=== PATIENT | female | born 1965 | race Hispanic/Latino ===

== ENCOUNTER 2023-09-20 09:03 | Emergency (ER) | payer BC ==
[~2023-09-20] VITALS: Ht 160 cm; Wt 79.4 kg
[2023-09-20 09:58] LABS: BASOPHILS % 0.4 % (0.0-1.0); EOSINOPHILS % 0.1 % (0.0-6.0); HEMATOCRIT 46.2 % (34.2-44.1); HEMOGLOBIN 14.9 g/dL (12.0-16.0); LYMPHOCYTES # (AUTO) 0.8 (1.0-3.2); MEAN CORPUSCULAR HEMOGLOBIN 31.4 pg (28-32); MEAN CORPUSCULAR HGB CONC 32.3 g/dL (31-35); MEAN CORPUSCULAR VOLUME 97.3 fL (81-99); MONOCYTES # (AUTO) 0.4 (0.2-0.8); MONOCYTES % 4.4 % (4.4-11.3); NEUTROPHILS # (AUTO) 8.3 (2.1-6.9); NEUTROPHILS % 86.9 % (38.7-80.0); PLATELET COUNT 194 x10e3/uL (140-360); RED BLOOD COUNT 4.75 x10e6/uL (3.6-5.1); RED CELL DISTRIBUTION WIDTH 14.7 % (11.7-14.4)
[2023-09-20 10:18] LABS: ALANINE AMINOTRANSFERASE 38 IU/L (0-55); ALBUMIN 3.5 g/dL (3.5-5.0); ALBUMIN/GLOBULIN RATIO 0.9 (0.8-2.0); ALKALINE PHOSPHATASE 190 IU/L (40-150); ANION GAP 27.4 mmol/L (8-16); BILIRUBIN,TOTAL 2.4 mg/dL (0.2-1.2); BLOOD UREA NITROGEN 8 mg/dL (7-26); BUN/CREATININE RATIO 11 (6-25); CARBON DIOXIDE 17 mmol/L (22-29); CHLORIDE 97 mmol/L (98-107); CREATINE KINASE 86 IU/L (29-168); CREATININE, SERUM 0.72 mg/dL (0.57-1.11); EST GLOMERULAR FILTRATION RATE 97 ML/MIN (>=60); GLUCOSE 114 mg/dL (74-118); LIPASE 22 U/L (8-78); SODIUM 138 mmol/L (136-145); TOTAL PROTEIN 7.5 g/dL (6.5-8.1)
[2023-09-20 10:19] LABS: POTASSIUM 3.4 mmol/L (3.5-5.1)
[2023-09-20 10:24] LABS: TROPONIN I < 0.001 ng/mL (0-0.300)
[2023-09-20 10:32] LABS: INR 1.09; PROTHROMBIN TIME 14.3 seconds (11.9-14.5)
[2023-09-20 10:33] LABS: PARTIAL THROMBOPLASTIN TIME 29.5 seconds (23.8-35.5)
[2023-09-20] MEDS: Morphine 4mg INJECTION 4 MG/ML INJ IV STA (10:50)
[2023-09-20] MEDS: SODIUM CHLORIDE 0.9% 1000ML 1,000 ML IV STA ×2 (10:51→12:32)
[2023-09-20] MEDS: ONDANSETRON HCL INJ 2MG/ML 2ML 2 MG/ML VIAL IV STA (10:51)
[2023-09-20 10:53] LABS: ABG HCO3 17 mmol/L (22-26); ABG PCO2 27 mmHg (35-45); ABG PO2 104 mmHg (80-105); ABG TCO2 18
[2023-09-20] MEDS ORDERED: SODIUM CHLORIDE 0.9% 100 ML ONE (10:56)
[2023-09-20] MEDS ORDERED: IOPAMIDOL 370 MG/ML 100 ML INFUS..BTL INJ ONE (10:56)
[2023-09-20 11:48] LABS: ACETAMINOPHEN < 3.0 ug/mL (10-30); ETHANOL < 10.0 mg/dL (0.0-10.0); SALICYLATE < 5.0 mg/dL (0-30)
[2023-09-20 12:04] LABS: CLARITY,URINE SL CLOUDY (CLEAR); COLOR,URINE YELLOW (YELLOW); GLUCOSE, URINE 500 (NEGATIVE); LEUKOCYTE ESTERASE ,URINE NEGATIVE (NEGATIVE); NITRITE,URINE NEGATIVE (NEGATIVE); PH,URINE 5.5 (5 - 7); PROTEIN,URINE DIPSTICK NEGATIVE (NEGATIVE)
[2023-09-20 12:05] LABS: BILIRUBIN,URINE NEGATIVE (NEGATIVE); KETONES,URINE >=160 (NEGATIVE); URINE UROBILINOGEN 0.2 mg/dL (0.2 - 1)
[2023-09-20 12:08] LABS: AMPHETAMINES SCREEN,URINE NEGATIVE (NEGATIVE); BENZODIAZEPINES SCREEN,URINE NEGATIVE (NEGATIVE); CANNABINOIDS SCREEN,URINE NEGATIVE (NEGATIVE); METHADONE SCREEN, URINE NEGATIVE (NEGATIVE); OPIATES SCREEN,URINE POSITIVE (NEGATIVE); PHENCYCLIDINE SCREEN,URINE NEGATIVE (NEGATIVE)
[2023-09-20 12:16] LABS: BACTERIA,URINE MANY /HPF; EPITHELIAL CELLS,URINE FEW /LPF; RBC,URINE 0-5 /HPF (0-5)
[2023-09-20 12:17] LABS: YEAST,URINE MANY
[2023-09-20] MEDS ORDERED: SODIUM CHLORIDE 0.9% 1000ML 1,000 ML IV SCH ×2 (12:30→13:15)
[2023-09-20] MEDS ORDERED: ONDANSETRON HCL INJ 2MG/ML 2ML 2 MG/ML VIAL IV PRN (12:30)
[2023-09-20] MEDS ORDERED: Morphine 4mg INJECTION 4 MG/ML INJ IV PRN (12:30)
[2023-09-20] MEDS ORDERED: HEPARIN 25,000 UNIT/D5W 250ML 800 UNIT in DEXTROSE 5% 250ML 250 ML IV SCH (14:45)
[2023-09-20 15:00] VITALS: O2SAT 100
== END 2023-09-20 15:37 | disposition other institution (70) ==
LOC: ER 09:10 → UNDOADMIN 12:27 → ERHOLD 12:27
DX: K76.5 Hepatic veno-occlusive disease (principal); K55.059 Acute (reversible) ischemia of intestine, part and extent unspecified; R16.0 Hepatomegaly, not elsewhere classified; E11.9 Type 2 diabetes mellitus without complications; K21.9 Gastro-esophageal reflux disease without esophagitis; Z11.52 Encounter for screening for COVID-19; R94.31 Abnormal electrocardiogram [ECG] [EKG]
CPT/HCPCS: 36415; 36600; 71045; 74174; 80053; 80307; 80320; 80329 ×2; 81001; 82550; 82805; 83605; 83690; 83735; 84484; 85025; 85610; 85730; 87040; 87086; 87186; 93005; 99284; C9113; J2270; J2405; J2543; J7030; J7050; Q9967; U0002